=== PATIENT | female | born 1995 | race American Indian/Alaskan Native ===

== ENCOUNTER 2019-08-09 10:30 | Observation (INO) | payer SELFPAY ==
--- NOTE | 2019-08-09 10:58 | Event Note ---
ED Screening Note ED Screening Note: Lower abd cramping that began last night vaginal bleeding states she is currently 7 weeks , states she tested positive for at urgent care no PMHx /P:1/A:0 This initial assessment/diagnostic orders/clinical plan/treatment(s) is/are subject to change based on patients health status, clinical progression and re- assessment by fellow clinical providers in the ED. Further treatment and workup at subsequent clinical providers discretion. Patient/guardian urged not to elope from the ED as their condition may be serious if not clinically assessed and managed. Initial orders include: labs, UA, US
[2019-08-09 11:38] LABS: Basophils # (Auto) 0.1 K/mm3 (0.0-0.1); Basophils % (Auto) 0.4 % (0.0-1.8); Eosinophils % (Auto) 0.2 % (0.0-4.3); Hemoglobin 12.4 gm/dl (10.1-14.3); Lymphocytes # (Auto) 1.7 K/mm3 (1.2-5.4); Mean Corpuscular HGB Conc 34 % (30-34); Mean Corpuscular Volume 90 fl (79-97); Monocytes # (Auto) 1.3 K/mm3 (0.0-0.8); Monocytes % (Auto) 6.8 % (0.0-7.3); Platelet Count 484 K/mm3 (140-440); Red Blood Count 4.13 M/mm3 (3.65-5.03); Red Cell Distribution Width 12.6 % (13.2-15.2)
--- NOTE | 2019-08-09 11:48 | Emergency Department Report ---
ED Female HPI - General Chief complaint: Vaginal Bleeding Stated complaint: 7WKS/VAG BLEEDING Time Seen by Provider: 08/09/19 10:56 Source: patient Mode of arrival: Ambulatory Limitations: No Limitations - History of Present Illness Initial comments: This is a 24-year-old who presents to ED approximately 7 weeks gestation with her last menstrual period of 06/20/2019. Patient states that she has an appointment with [facility] STAFF RADIOGRAPHER on August 24. Patient has not received care this . Patient states that she had been spotting for the past week and today she woke up having bright red heavy vaginal bleeding. Patient also complaining of upper abdominal pain that is worsened with laying on her back. Past medical history positive for PCOS, endometriosis. MD Complaint: vaginal bleeding, pelvic pain Radiation: periumbillical Severity: moderate Severity scale (0 -10): 8 Quality: cramping Consistency: constant Improves with: other (sitting up) Worsens with: other (laying down) Are you Now?: Yes Last Menstrual Period: 06/20/19 EDC: 03/26/20 Associated Symptoms: abdominal pain - Related Data Allergies Allergy/AdvReac Type Severity Reaction Status Date / Time Sulfa (Sulfonamide Allergy Hives Verified 08/09/19 10:50 Antibiotics) Tetracyclines Allergy Hives Verified 08/09/19 10:50 vancomycin Allergy Hives Verified 08/09/19 10:50 ED Review of Systems ROS: Stated complaint: 7WKS/VAG BLEEDING Other details as noted in HPI Comment: All other systems reviewed and negative ED Past Medical Hx - Past Medical History Previous Medical History?: No - Surgical History Past Surgical History?: No - Social History Smoking Status: Never Smoker Substance Use Type: None ED Physical Exam - General Limitations: No Limitations General appearance: alert, in no apparent distress - Head Head exam: Present: atraumatic, normocephalic - Eye Eye exam: Present: normal appearance - ENT ENT exam: Present: mucous membranes moist - Neck Neck exam: Present: normal inspection - Respiratory Respiratory exam: Present: normal lung sounds bilaterally. Absent: respiratory distress - Cardiovascular Cardiovascular Exam: Present: regular rate, normal rhythm. Absent: systolic murmur, diastolic murmur, rubs, gallop - GI/Abdominal GI/Abdominal exam: Present: soft, normal bowel sounds. Absent: distended, tenderness - Extremities Exam Extremities exam: Present: normal inspection - Back Exam Back exam: Present: normal inspection, full ROM - Neurological Exam Neurological exam: Present: alert, oriented X3 - Psychiatric Psychiatric exam: Present: normal affect, normal mood - Skin Skin exam: Present: warm, dry, intact, normal color. Absent: rash ED Course Vital Signs 08/09/19 10:48 Temperature 97.4 F L Pulse Rate 130 H Respiratory 16 Rate Blood Pressure 127/90 O2 Sat by Pulse 92 Oximetry - Consultations Consultation #1: Case was discussed with STAFF RADIOGRAPHER attending Dr. Odalys Carballo pending CT scan 08/09/19 16:[address] Carballo about CT results. Dr. Carballo stated that she will be taking the patient to surgery. Nothing by mouth ordered, admitted to the mother-baby order placed 08/09/19 18:49 ED Medical Decision Making - Lab Data Result diagrams: 08/09/19 11:28 08/09/19 11:28 Laboratory Tests 08/09/19 08/09/19 08/09/19 11:28 11:28 11:28 WBC 18.6 H RBC 4.13 Hgb 12.4 Hct 37.0 MCV 90 MCH 30 MCHC 34 RDW 12.6 L Plt Count 484 H Lymph % (Auto) 9.0 L [place] % (Auto) 6.8 Eos % (Auto) 0.2 Baso % (Auto) 0.4 Lymph # 1.7 [place] # 1.3 H Eos # 0.0 Baso # 0.1 Seg Neutrophils % 83.6 H Seg Neutrophils # 15.6 H Sodium 138 Potassium 3.9 Chloride 101.2 Carbon Dioxide 20 L Anion Gap 21 BUN 10 Creatinine 0.5 L Estimated GFR > 60 BUN/Creatinine Ratio 20 Glucose 139 H Calcium 9.7 HCG, Quant 9639 H Urine Color Urine Turbidity Urine pH Ur Specific [place] Urine Protein Urine Glucose (UA) Urine Ketones Urine Blood Urine Nitrite Urine Bilirubin Urine Urobilinogen Ur Leukocyte Esterase Urine WBC (Auto) Urine RBC (Auto) Urine Bacteria (Auto) Urine Mucus Blood Type 08/09/19 08/09/19 11:28 12:48 WBC RBC Hgb Hct MCV MCH MCHC RDW Plt Count Lymph % (Auto) [place] % (Auto) Eos % (Auto) Baso % (Auto) Lymph # [place] # Eos # Baso # Seg Neutrophils % Seg Neutrophils # Sodium Potassium Chloride Carbon Dioxide Anion Gap BUN Creatinine Estimated GFR BUN/Creatinine Ratio Glucose Calcium HCG, Quant Urine Color Yellow Urine Turbidity Turbid Urine pH 5.0 Ur Specific [place] 1.026 Urine Protein 30 mg/dl Urine Glucose (UA) Neg Urine Ketones Tr Urine Blood Lg Urine Nitrite Neg Urine Bilirubin Neg Urine Urobilinogen < 2.0 Ur Leukocyte Esterase Neg Urine WBC (Auto) < 1.0 Urine RBC (Auto) 51.0 Urine Bacteria (Auto) 4+ Urine Mucus 1+ Blood Type O POSITIVE - Radiology Data Radiology results: report reviewed US Findings: There is no intrauterine gestational sac identified. Right ovarian and and left ovarian measurements are normal. There is a masslike lesion measuring up to 6.9 x 3 x 5.9 cm in the posterior cul-de-sac with an unknown or unclear etiology. CT CHEST, ABDOMEN AND PELVIS WITH CONTRAST HISTORY: Pain and shortness of breath after recent miscarriage COMPARISON: None TECHNIQUE: Routine chest, abdominal and pelvic CT exam performed with IV contrast. The patient received 100 mL of IV Omnipaque 300. All CT scans at this location are performed using CT dose reduction for ALARA by means of automated exposure control. FINDINGS: CT CHEST: Lungs: No significant abnormality. Trachea and Bronchi: No significant abnormality. Heart and Pericardium: No significant abnormality. Vasculature: No significant abnormality. Lymphatics: No lymphadenopathy. CT ABDOMEN: Liver: No significant abnormality. Biliary: No significant abnormality. Spleen: There is a tiny 1.5 cm cyst in the posterior spleen, but likely conical significance. Pancreas: No significant abnormality. Adrenals: No significant abnormality. Kidneys: No significant abnormality. Lymphatics: No lymphadenopathy. Vasculature: No significant abnormality. Bowel/Peritoneum: There is hemoperitoneum in the lower abdomen. There is no bowel obstruction. CT PELVIC: : The uterus is mildly enlarged and is adjacent to the hemoperitoneum. There appears to be a cystic lesion in the right ovary/ri ght adnexal region. Lymphatics: No lymphadenopathy. Osseous Structures: No aggressive appearing osseous lesions. Additional Findings: None IMPRESSION: 1. CT findings consistent with hemoperitoneum in the lower abdomen with cystic lesion in the right adnexa that most likely represents a ruptured ectopic . Findings discussed with Dr. Lozano at 5:21 PM central time on 08/09/2019. Signer Name: Andrae Moss MD Signed: 08/09/2019 6:22 PM Workstation Name: [email or web address] Transcribed By: GIULIA Dictated By: Andrae Moss MD Electronically Authenticated By: Andrae Moss MD Signed Date/Time: 08/09/191821 - Medical Decision Making 36-year-old female presents with vaginal bleeding and abdominal pain in . CBC shows leukocytosis, CMP show some abnormalities. Urinalysis shows 4+ bacteria, and quantitative beta is about 9639 which is pretty low for several weeks gestation. Ultrasound shows no intrauterine . See as reported above. STAFF RADIOGRAPHER as being consulted, Dr. Carballo will come and evaluate the patient. Order is placed Patient was still in pain after administration of Tylenol. After ultrasound shows no acute patient was ordered a [place] tablet. IV and started on patient. 2 mg of morphine ordered for pain. CT scan does confirm a ruptured ectopic . Discussed findings with the patient. Right now patient is hemodynamically stable Critical care attestation.: If time is entered above; I have spent that time in minutes in the direct care of this critically ill patient, excluding procedure time. ED Disposition Clinical Impression: Ruptured ectopic Disposition: OP ADMIT IP TO THIS HOSP Is pt being admited?: Yes Does the pt Need Aspirin: No Condition: Stable Referrals: PRIMARY CARE, [Primary Care Provider] - 3-5 Days Time of Disposition: 18:50
[2019-08-09] MEDS ORDERED: ACETAMINOPHEN 325 MG TAB PO ONE (11:52)
[2019-08-09] MEDS ORDERED: FAMOTIDINE 20 MG TAB PO ONE (11:53)
[2019-08-09 11:56] LABS: BUN/Creatinine Ratio 20; Blood Urea Nitrogen 10 mg/dL (7-17); Calcium 9.7 mg/dL (8.4-10.2); Hemolysis Index 9
[2019-08-09 13:25] LABS: Bacteria,Urine 4+ /HPF (Negative); Bilirubin,Urine NEG (Negative); Blood,Urine LG (Negative); Color,Urine Yellow (Yellow); Mucus,Urine 1+ /HPF; Urobilinogen,Urine < 2.0 mg/dL (<2.0)
[2019-08-09 13:26] LABS: WBC,Urine < 1.0 /HPF (0.0-6.0)
--- NOTE | 2019-08-09 14:51 | Ultrasound Report ---
FIRSTTRIMESTER OBSTETRIC ULTRASOUND ULTRASOUND OB TRANSVAGINAL HISTORY: 7 weeks , abdominal pain and bleeding COMPARISON: None. TECHNIQUE: Routine transabdominal and transvaginal OB ultrasound performed. FINDINGS: The uterus is anteverted and measures 7.8 x 3.7 x 3.7 cm. No intrauterine gestational sac is identifi ed at this time. The endometrial stripe measures 6 mm. The right ovary measures 2.6 x 1.6 x 1.5 cm. The left ovary measures 2.0 x 0.9 x 2.0 cm. There is a masslike lesion measuring up to 6.9 x 3.4 x 5.9 cm in the posterior cul-de-sac. The etiolo gy of this is unclear. An ectopic cannot be excluded. IMPRESSION No normal intrauterine is demonstrated. The endometrium measures 6 mm. There is a complex masslike lesion in the posterior cul-de-sac of uncertain etiology. An ectopic preg chicho cannot be excluded. Please correlate with the clinical presentation of the patient and laborato ry values. MR pelvis may prove useful if further evaluation is needed. Signer Name: Romaine Sánchez Jr, MD Signed: 08/09/2019 2:46 PM Workstation Name: [id number]
[2019-08-09] MEDS ORDERED: HYDROcodone/ACETAMINOPHEN 10-325MG TAB PO ONE (15:08)
[2019-08-09] MEDS ORDERED: SODIUM CHLORIDE 0.9% 1000 ML 1,000 ML IV ONE (16:04)
[2019-08-09] MEDS ORDERED: MORPHINE 2 MG/1 ML INJ IV ONE (17:11)
[2019-08-09] MEDS ORDERED: MORPHINE 2 MG/1 ML INJ ONE (17:15)
--- NOTE | 2019-08-09 18:26 | Cat Scan Report ---
CT CHEST, ABDOMEN AND PELVIS WITH CONTRAST HISTORY: Pain and shortness of breath after recent miscarriage COMPARISON: None TECHNIQUE: Routine chest, abdominal and pelvic CT exam performed with IV contrast. The patient receiv ed 100 mL of IV Omnipaque 300. All CT scans at this location are performed using CT dose reduction fo r ALARA by means of automated exposure control. FINDINGS: CT CHEST: Lungs: No significant abnormality. Trachea and Bronchi: No significant abnormality. Heart and Pericardium: No significant abnormality. Vasculature: No significant abnormality. Lymphatics: No lymphadenopathy. CT ABDOMEN: Liver: No significant abnormality. Biliary: No significant abnormality. Spleen: There is a tiny 1.5 cm cyst in the posterior spleen, but likely conical significance. Pancreas: No significant abnormality. Adrenals: No significant abnormality. Kidneys: No significant abnormality. Lymphatics: No lymphadenopathy. Vasculature: No significant abnormality. Bowel/Peritoneum: There is hemoperitoneum in the lower abdomen. There is no bowel obstruction. CT PELVIC: : The uterus is mildly enlarged and is adjacent to the hemoperitoneum. There appears to be a cystic lesion in the right ovary/right adnexal region. Lymphatics: No lymphadenopathy. Osseous Structures: No aggressive appearing osseous lesions. Additional Findings: None IMPRESSION: 1. CT findings consistent with hemoperitoneum in the lower abdomen with cystic lesion in the right ad nexa that most likely represents a ruptured ectopic . Findings discussed with Dr. Lozano at 5:21 PM central time on 08/09/2019. Signer Name: Andrae Moss MD Signed: 08/09/2019 6:22 PM Workstation Name: [email or web address]
[2019-08-09] MEDS ORDERED: SODIUM CHLORIDE 0.9% 500 ML 500 ML IV ONE (18:56)
--- NOTE | 2019-08-09 19:36 | Anesthesia Consultation ---
Anesthesia Consult and Med Hx Date of service: 08/09/19 - Airway Anesthetic Teeth Evaluation: Poor (denies loose teeth) ROM Head & Neck: Adequate Mental/Hyoid Distance: Adequate Mallampati Class: Class I Intubation Access Assessment: Good - Pulmonary Exam CTA: Yes - Cardiac Exam Cardiac Exam: RRR - Pre-Operative Health Status ASA Pre-Surgery Classification: ASA2, Emergency Proposed Anesthetic Plan: General - Pulmonary Hx Asthma: Yes (seasonal; no recent inhaler use) Hx Respiratory Symptoms: No - Cardiovascular System Hx Hypertension: No - Central Nervous System CVA: No - Gastrointestinal Hx Gastroesophageal Reflux Disease: No - Endocrine Hx Renal Disease: No Hx Liver Disease: No Hx Insulin Dependent Diabetes: No Hx Non-Insulin Dependent Diabetes: No Hx Thyroid Disease: No - Hematic Hx Anemia: Yes - Other Systems Hx Obesity: No - Additional Comments Anesthesia Medical History Comments: No hx anesthetic complications. PMH mild- intermittent asthma, PCOS, endometriosis presenting with possible ruptured ectopic . HD stable, crossmatch pending. Plan GETA.
[2019-08-09] MEDS ORDERED: MEPERIDINE 25 MG/1 ML INJ IV PRN (19:37)
[2019-08-09] MEDS ORDERED: ONDANSETRON 4 MG/2 ML INJ IV PRN (19:37)
--- NOTE | 2019-08-09 19:37 | Anesthesia Day of Surgery ---
Anesthesia Day of Surgery - Day of Surgery Patient Examined: Yes Patient H&P Reviewed: Yes Patient is NPO: Yes
[2019-08-09] MEDS ORDERED: fentaNYL 100 MCG/2 ML INJ ONE ×2 (19:39→22:50)
[2019-08-09] MEDS ORDERED: ROCURONIUM 50 MG/5 ML INJ IV ONE (19:39)
[2019-08-09] MEDS ORDERED: PROPOFOL 200 MG/20 ML VIAL IV ONE (19:39)
[2019-08-09] MEDS ORDERED: LIDOCAINE MPF (2%) 20 MG/1 ML VIAL 5 ML ONE (19:39)
--- NOTE | 2019-08-09 19:46 | History and Physical Report ---
History of Present Illness Date of examination: 08/09/19 Date of admission: 08/09/19 18:47 Chief complaint: abdominal pain and bleeding History of present illness: This is a 24-year-old who presents to ED approximately 7 weeks gestation with her last menstrual period of 06/20/2019. Patient states that she has an appointment with [place] CUSTOMER SERVICE ENGINEER on August 24. Patient has not received care this . Patient states that she had been spotting for the past week and today she woke up having bright red heavy vaginal bleeding. Patient also complaining of upper abdominal pain that is worsened with laying on her back. Past medical history positive for PCOS, endometriosis. Past History Past Medical History: other (PCOS, Endometriosis) Past Surgical History: section, other (cystectomy x2. 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 denies: smoking, alcohol abuse, prescription drug abuse Medications and Allergies Allergies Allergy/AdvReac Type Severity Reaction Status Date / Time Sulfa (Sulfonamide Allergy Hives Verified 08/09/19 10:50 Antibiotics) Tetracyclines Allergy Hives Verified 08/09/19 10:50 vancomycin Allergy Hives Verified 08/09/19 10:50 Active Meds: Active Medications Hydromorphone HCl (Dilaudid) 0.5 mg IV Q10MIN PRN PRN Reason: Pain , Severe (7-10) Meperidine HCl (Demerol) 25 mg IV ONCE PRN PRN Reason: Shivering Ondansetron HCl (Zofran) 4 mg IV ONCE PRN PRN Reason: Nausea And Vomiting Review of Systems All systems: negative Gastrointestinal: constipation Genitourinary: normal appearance, pelvic pain - Vital Signs Vital signs: Vital Signs Temp Pulse Resp BP Pulse Ox 97.4 F L 130 H 16 127/90 92 08/09/19 10:48 08/09/19 10:48 08/09/19 10:48 08/09/19 10:48 08/09/19 10:48 Temp Pulse Resp BP Pulse Ox 97.4 F L 130 H 16 127/90 92 08/09/19 10:48 08/09/19 10:48 08/09/19 10:48 08/09/19 10:48 08/09/19 10:48 - Physical Exam Breasts: Positive: deferred Cardiovascular: Regular rate, Normal S1 Lungs: Positive: Clear to auscultation, Normal air movement Abdomen: Positive: normal appearance, distention, tenderness Genitourinary (Female): Positive: normal external genitalia, normal perenium Uterus: Positive: normal size, tender Extremities: Positive: normal Deep Tendon Reflex Grade: Normal +2 Results Result Diagrams: 08/09/19 11:28 08/09/19 11:28 Abnormal lab results 08/09/19 08/09/19 08/09/19 Range/Units 11:28 11:28 11:28 WBC 18.6 H (4.5-11.0) K/mm3 RDW 12.6 L (13.2-15.2) % Plt Count 484 H (140-440) K/mm3 Lymph % (Auto) 9.0 L (13.4-35.0) % [place] # 1.3 H (0.0-0.8) K/mm3 Seg Neutrophils % 83.6 H (40.0-70.0) % Seg Neutrophils # 15.6 H (1.8-7.7) K/mm3 Carbon Dioxide 20 L (22-30) mmol/L Creatinine 0.5 L (0.7-1.2) mg/dL Glucose 139 H (65-100) mg/dL HCG, Quant 9639 H (0-4) mIU/mL All other labs normal. Ultrasound: report reviewed CT scan - abdomen: report reviewed Assessment and Plan A/P Suspected Ruptured Ectopic Admit, ivf, type and cross 1 Unit discussed r/b/a whcih include but not limited to bleeding infection damage to pelvic and non pelvic organ, risk of hysterectomy and All patients questions answered Will proceed with L/S exploratory surgery
[2019-08-09] MEDS ORDERED: CITRIC ACID-SOD CITRATE 500 ML IV ONE (19:52)
[2019-08-09] MEDS ORDERED: BUPIVACAINE/PF (0.5%) 5 MG/1 ML 30 ML VIAL INFILTRATI ONE ×3 (19:52→21:31)
[2019-08-09] MEDS ORDERED: SODIUM CHLORIDE 0.9% IRR 1,000 ML BOTTLE IR ONE (21:31)
[2019-08-09] MEDS ORDERED: dexAMETHasone 20 MG/5 ML VIAL ONE (22:00)
[2019-08-09] MEDS ORDERED: ONDANSETRON 4 MG/2 ML INJ ONE (22:50)
[2019-08-09] MEDS: HYDROmorphone 1 MG/1 ML INJ IV PRN ×4 (23:05→23:40)
--- NOTE | 2019-08-09 23:06 | Operative Report ---
Operative Report Operative Report: DATE OF OPERATION: 08/09/19 PREOPERATIVE DIAGNOSIS: Right tubal ectopic . POSTOPERATIVE DIAGNOSIS: Normal pelvis. Moderate hemoperot OPERATION PERFORMED: Diagnostic laparoscopy. SURGEON:Odalys Carballo MD PAINT POURER: Hermelindo Pacheco MD ANESTHESIA: General endotracheal. ESTIMATED BLOOD LOSS: 500 mL. INDICATIONS FOR OPERATION: This (24)-year-old 2, para 1 female, last menstrual period 06/19/2019, presented with right lower quadrant pain and a positive test. Ultrasound done showed no IUP, 6x3x5 posterior cul de sac mass. A quantitative HCG was 9000 mIU/mL. With this large HCG level and absence of gestational sac, an ectopic was suspected. DESCRIPTION OF OPERATION: Upon induction of excellent general endotracheal anesthesia, the patient was prepped and draped in the dorsal lithotomy position. Bimanual examination revealed the uterus to be anteverted and slightly enlarged with no adnexal masses palpable. A weighted vaginal speculum was placed into the vaginal canal and a single-tooth tenaculum was used to grasp the anterior cervix. A [place] cannula was introduced for laparoscopic manipulation. The patients bladder was decompressed with straight gravity drainage. Attention was then focused on the abdomen, where a vertical skin incision was made through the patients umbilicus. Using a drop-in technique, the peritoneal cavity was entered without difficulty. Geoffrey cannula was then placed in the umbilical area. Then, 5 mm trocars were placed suprapubically and in the left lower quadrant. Operative findings were that olarge amount of blood in belly. The uterus was slightly enlarged and hyperemic. Fallopian tubes appeared normal on the left but evidence of hydrosalpinxand adhesions on the right . Blood noted from the fallopian tubal end on the right. The left ovary appeared normal and mobile. The cul-de-sac had large amount fluid, consistent of blood and blood clots. The rest of the peritoneal contents were inspected with normal liver edge seen without adhesions. The appendix was normal. Omental adhesion from abdominal wall removed. Ectopic was placed in bag and removed from 10 mm port. The left trocar site was removed no bleeding noted. The remainder of the trocars was then removed. Closure was then accomplished with 2-0 Vicryl in the umbilical fascia and 4-0 Vicryl on the skin. Then, 8 mL of 0.5% Marcaine was infiltrated for analgesia postoperative. Estimated blood loss was 500 mL. The patient was then taken to the recovery room in satisfactory condition.
--- NOTE | 2019-08-09 23:10 | Discharge Summary ---
Providers - Providers Date of Admission: 08/09/19 18:47 Date of discharge: 08/09/19 Attending physician: SHARON CRUZ MD Primary care physician: INDUSTRIAL RELATIONS OFFICER Hospitalization Reason for admission: other (ectopic ) Procedure: other (Exploratrory laproscopic salpingectomy, lysis of adhesions) Incision: normal, dry, intact Discharge diagnosis: other (s/p removal of ectopic and lysis of adhesions) Condition at discharge: Good Disposition: DC- TO HOME OR SELFCARE Plan - Discharge Medications Prescriptions: Ferrous Sulfate [Feosol 325 MG tab] 325 mg PO BID #30 tablet Ibuprofen [Motrin] 600 mg PO Q8H PRN #30 tablet PRN Reason: Pain oxyCODONE /ACETAMINOPHEN [Percocet 5/325] 1 tab PO Q6HR PRN #30 tablet PRN Reason: Pain - Provider Discharge Summary Activity: routine, no sex for 6 weeks, no strenuous exercise Diet: routine Instructions: routine Additional instructions: [] Smoking cessation referral if applicable(refer to patient education folder for contact #) [] Refer to [facility]'s [facility] Booklet Call your doctor immediately for: * Fever > 100.5 * Heavy vaginal bleeding ( >1 pad per hour) * Severe persistent headache * Shortness of breath * Reddened, hot, painful area to leg or breast * Drainage or odor from incision. * Keep incision clean and dry at all times and follow doctor's instructions regarding bathing/showering - Follow up plan Follow up: PRIMARY MD WILBER [Primary Care Provider] - 14 Days
[2019-08-09] MEDS ORDERED: oxyCODONE /ACETAMINOPHEN 5-325MG TAB PO ONE (23:50)
--- NOTE | 2019-08-10 00:16 | Post Anesthesia Evaluation ---
- Post Anesthesia Evaluation Patient Participated: Yes Airway Patent: Yes Stable Respiratory Function: Yes Nausea/Vomiting: No Temp > 96.8F: Yes Pain Manageable: Yes Adequeate Hydration: Yes Anesthesia Complications: No
[2019-08-10 00:26] VITALS: BP 135/86
== END 2019-08-10 00:50 | disposition home or self-care (01) ==
LOC: ED 10:30 → OB 18:47 → 3A 23:38
PROVIDERS: ADMIT Obstetrics & Gynecology; ATTEND Obstetrics & Gynecology
DX: O00.101 Right tubal pregnancy without intrauterine pregnancy (principal); O34.219 Maternal care for unspecified type scar from previous cesarean delivery; Z3A.01 Less than 8 weeks gestation of pregnancy; Z88.2 Allergy status to sulfonamides; Z88.1 Allergy status to other antibiotic agents
CPT/HCPCS: 36415; 59151; 71260; 74177; 76801; 76817; 80048; 81001; 84702; 85025; 86850; 86900; 86901; 86920; 88305; 96374; 96375; 96376; 99284; G0378; J1100; J1170; J2270; J2405; J2704; J3010; J7030; Q9967